=== PATIENT | male | born 1930 | race Caucasian/White ===

== ENCOUNTER 2016-11-07 14:19 | Emergency (ER) | payer MEDICARE ==
--- NOTE | 2016-11-07 15:08 | XR ---
EXAMINATION TYPE: XR chest 1V portable DATE OF EXAM: 11/07/2016 3:00 PM COMPARISON: Chest x-ray September 27, 2015 HISTORY: Checkup after tracheostomy reinsertion. TECHNIQUE: Single AP portable frontal view of the chest is obtained. FINDINGS: Tracheostomy ostomy tube position is stable. There is persistent bibasilar scarring and/or atelectasis. There is no no focal air space opacity, pleural effusion, or pneumothorax seen. The car diac silhouette size is upper limits of normal with atherosclerotic thoracic aorta. The osseous str uctures are intact. IMPRESSION: Persistent patchy bibasilar atelectasis and/or scarring. Tracheostomy tube position stakeke le.
--- NOTE | 2016-11-07 16:18 | ED ---
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 He presents with complaints of shortness of breath no chest pain fevers chills sweats or other symptoms. Patient was unable to get it back in. MD Complaint: shortness of breath - Related Data Home Medications Medication Instructions Recorded Confirmed Carvedilol [Coreg] 3.125 mg PO BID 06/20/16 11/07/16 Folic Acid 1 mg PO DAILY 06/20/16 11/07/16 Lactose-Reduced Food/Fiber [Jevity 237 ml PO Q4H 06/20/16 11/07/16 1.2 Jose L Liquid] Midodrine [ProAmatine] 5 mg PO TID 06/20/16 11/07/16 Nitroglycerin [Nitro-Dur 0.4MG/Hr 1 patch TRANSDERM Q24H PRN 06/20/16 11/07/16 Patch] Pravastatin Sodium [Pravachol] 80 mg PO DAILY 11/07/16 11/07/16 Previous Rx's Medication Instructions Recorded Aspirin 81 mg PO DAILY chew 09/29/15 Gabapentin [Neurontin] 300 mg PO BID cap 09/29/15 Tamsulosin [Flomax] 0.4 mg PO DAILY cap.er.24h 09/29/15 Allergies Allergy/AdvReac Type Severity Reaction Status Date / Time Penicillins AdvReac Unknown Verified 11/07/16 15:56 Review of Systems ROS Statement: Those systems with pertinent positive or pertinent negative responses have been documented in the HPI. ROS Other: All systems not noted in ROS Statement are negative. 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1950 History of Any Multi-Drug Resistant Organisms: None Reported Past Surgical History: Heart Catheterization With Stent, Tonsillectomy Additional Past Surgical History / Comment(s): esophageal dilation Past Anesthesia/Blood Transfusion Reactions: No Reported Reaction Date of Last Stent Placement:: 2009 Past Psychological History: No Psychological Hx Reported Smoking Status: Never smoker Past Alcohol Use History: None Reported Past Drug Use History: None Reported - Past Family History Mother Family Medical History: Dementia General Exam - General Exam Comments Initial Comments: This is a well-developed asthenic appearing male who appears be in some respiratory distress. Limitations: no limitations General appearance: alert, anxious, in distress Head exam: Present: atraumatic, normocephalic, normal inspection Eye exam: Present: normal appearance, PERRL, EOMI. Absent: scleral icterus, conjunctival injection, periorbital swelling ENT exam: Present: normal exam, mucous membranes moist Neck exam: Present: other (A well healed tracheostomy site is noted no active bleeding there is some stridorous findings on examination.) Respiratory exam: Present: normal lung sounds bilaterally. Absent: respiratory distress, wheezes, rales, rhonchi, stridor Cardiovascular Exam: Present: normal rhythm, tachycardia, normal heart sounds. Absent: systolic murmur, diastolic murmur, rubs, gallop, clicks GI/Abdominal exam: Present: soft, normal bowel sounds. Absent: distended, tenderness, guarding, rebound, rigid Extremities exam: Present: normal inspection, full ROM, normal capillary refill. Absent: tenderness, pedal edema, joint swelling, calf tenderness Back exam: Present: normal inspection Neurological exam: Present: alert, oriented X3, CN II-XII intact Psychiatric exam: Present: normal affect, normal mood Skin exam: Present: warm, dry, intact, normal color. Absent: rash Course Vital Signs 11/07/16 11/07/16 11/07/16 14:27 14:48 15:37 Temperature 96.7 F L Pulse Rate 107 H 90 86 Respiratory 30 H 24 24 Rate Blood Pressure 178/79 141/71 137/60 O2 Sat by Pulse 80 L 96 94 L Oximetry - Reevaluation(s) Reevaluation #1: 11/07/16 16:17 I did discuss the case with Dr. Alonzo the patient will be discharged home after period of observation with daily trach evaluation by home health care. Follow-up in the office. Procedures - Procedures Initial comment: Patient did require replacement of the tracheostomy and obturator was not available for the Christian silver metal tracheostomy.. The site was prepped sterilely attempt was made using a #8 Shiley which was the size of the Christian tracheostomy. We are unable pass it. A #6 was successfully passed with some difficulty. There was a small amount of localized bleeding. Patient did feel much improved after the placement of the tracheostomy. Medical Decision Making - Medical Decision Making The patient was observed for a period of time and home health care was also set up in the interim. Patient was reevaluated by respiratory. Patient will be discharged home is a follow-up with Dr. Alonzo and return when necessary he is much improved at this time. - Radiology Data Radiology results: report reviewed (I did review the x-ray and report no acute findings.), image reviewed Critical Care Time Critical Care Time: Yes Critical Care Time: 31 minutes of critical care time which includes initial presentation with history physical. Reevaluation patient several occasions after the tracheostomy was replaced. Discussion with Dr. Alonzo. Discussed with the family. Documentation of the above. Disposition Clinical Impression: Tracheostomy mechanical complication, Tracheostomy care Disposition: HOME SELF-CARE Condition: Good Instructions: Tracheostomy Care (ED) Referrals: Joya Perkins MD [Primary Care Provider] - 1-2 days [place] DO [Doctor of Osteopathic Medicine] - 1-2 days
[2016-11-07 16:45] VITALS: BP 143/68; PULSE 85; RESP 16; TEMP 98.5
== END 2016-11-07 16:43 | disposition home or self-care (01) ==
LOC: EC 14:19
DX: J95.03 Malfunction of tracheostomy stoma (principal); I25.10 Atherosclerotic heart disease of native coronary artery without angina pectoris; E78.5 Hyperlipidemia, unspecified; I10 Essential (primary) hypertension; Z79.899 Other long term (current) drug therapy; Z88.0 Allergy status to penicillin; Z95.5 Presence of coronary angioplasty implant and graft; Z90.89 Acquired absence of other organs; Y83.8 Other surgical procedures as the cause of abnormal reaction of the patient, or of later complication, without mention of misadventure at the time of the procedure
CPT/HCPCS: 31502; 71010; 99285

== ENCOUNTER 2016-12-19 02:49 | Emergency (ER) | payer MEDICARE ==
[2016-12-19 02:59] VITALS: RESP 18; TEMP 97.6
--- NOTE | 2016-12-19 03:07 | ED ---
Recheck HPI - General Source: patient, RN notes reviewed Mode of arrival: ambulatory Limitations: no limitations <Santa Justice - Last Filed: 12/19/16 03:05> <Sher Ugalde - Last Filed: 12/19/16 04:23> - General Chief Complaint: Recheck/Abnormal Lab/Rx Stated Complaint: stomach tube Time Seen by Provider: 12/19/16 03:01 - History of Present Illness Initial Comments: 86 yo male presents to the ER with cc of feeding tube came out. Patient states that he woke up with the feeding tube out. Patient denies any pain. Patient states she's had this happen before. Patient states he just needs a feeding tube replaced. Patient denies any other symptoms at this time. Patient denies any recent fever, chills, shortness of breath, chest pain, back pain, abdominal pain, nausea vomiting, numbness or tingling, dysuria or hematuria, constipation or diarrhea, headaches or visual changes, or any other current symptoms. (Santa Justice) - Related Data Home Medications Medication Instructions Recorded Confirmed Carvedilol [Coreg] 3.125 mg PO BID 06/20/16 11/07/16 Folic Acid 1 mg PO DAILY 06/20/16 11/07/16 Lactose-Reduced Food/Fiber [Jevity 237 ml PO Q4H 06/20/16 11/07/16 1.2 Jose L Liquid] Midodrine [ProAmatine] 5 mg PO TID 06/20/16 11/07/16 Nitroglycerin [Nitro-Dur 0.4MG/Hr 1 patch TRANSDERM Q24H PRN 06/20/16 11/07/16 Patch] Pravastatin Sodium [Pravachol] 80 mg PO DAILY 11/07/16 11/07/16 Previous Rx's Medication Instructions Recorded Aspirin 81 mg PO DAILY chew 09/29/15 Gabapentin [Neurontin] 300 mg PO BID cap 09/29/15 Tamsulosin [Flomax] 0.4 mg PO DAILY cap.er.24h 09/29/15 Allergies Allergy/AdvReac Type Severity Reaction Status Date / Time Penicillins AdvReac Unknown Verified 12/19/16 02:59 Review of Systems ROS Other: All systems not noted in ROS Statement are negative. <Santa Justice - Last Filed: 12/19/16 03:05> ROS Other: All systems not noted in ROS Statement are negative. <Sher Ugalde - Last Filed: 12/19/16 04:23> ROS Statement: Those systems with pertinent positive or pertinent negative responses have been documented in the HPI. 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1950 History of Any Multi-Drug Resistant Organisms: None Reported Past Surgical History: Heart Catheterization With Stent, Tonsillectomy Additional Past Surgical History / Comment(s): esophageal dilation, feeding tube , trach Past Anesthesia/Blood Transfusion Reactions: No Reported Reaction Date of Last Stent Placement:: 2009 Past Psychological History: No Psychological Hx Reported Smoking Status: Never smoker Past Alcohol Use History: None Reported Past Drug Use History: None Reported - Past Family History Mother Family Medical History: Dementia <Santa Justice - Last Filed: 12/19/16 03:05> General Exam Limitations: no limitations General appearance: alert, in no apparent distress Neck exam: Present: normal inspection. Absent: tenderness, meningismus, lymphadenopathy Respiratory exam: Present: normal lung sounds bilaterally. Absent: respiratory distress, wheezes, rales, rhonchi, stridor Cardiovascular Exam: Present: regular rate, normal rhythm, normal heart sounds. Absent: systolic murmur, diastolic murmur, rubs, gallop, clicks GI/Abdominal exam: Present: soft, normal bowel sounds. Absent: distended, tenderness, guarding, rebound, rigid Neurological exam: Present: alert, oriented X3 Psychiatric exam: Present: normal affect, normal mood Skin exam: Present: warm, dry, intact, normal color. Absent: rash <Santa Justice - Last Filed: 12/19/16 03:05> Medical Decision Making - Radiology Data Radiology results: report reviewed, image reviewed <Santa Justice - Last Filed: 12/19/16 03:05> <Sher Ugalde - Last Filed: 12/19/16 04:23> - Medical Decision Making 86-year-old male presents emergency Department with a chief complaint of feeding tube coming out. At this time we replace the patient's feeding tube. We discussed follow-up return parameters. We discussed all the patient's questions. They state Nelson they're urine plan. They will be discharged home. (Santa Justice) I saw this patient in conjunction with the physician surgical assistant certified. I performed independent history and physical exam. Agree with case management. I personally replaced the gastric tube without complication. (Sher Ugalde) Disposition <Santa Justice - Last Filed: 12/19/16 03:05> <Sher Ugalde - Last Filed: 12/19/16 04:23> Clinical Impression: Encounter for feeding tube placement Disposition: HOME SELF-CARE Condition: Stable Instructions: How to Use and Care for Your PEG Tube (ED) Additional Instructions: Please use medication as discussed. Please follow up with family doctor if symptoms have not improved over the next two days. Please return to the emergency room if your symptoms increase or worsen or for any other concerns. Referrals: Joya Perkins MD [Primary Care Provider] - 1-2 days
[2016-12-19 04:39] VITALS: BP 154/79; PULSE 76
--- NOTE | 2016-12-19 05:05 | XR ---
EXAM: XR Abdomen, 1 View CLINICAL HISTORY: Feeding tube placement TECHNIQUE: Frontal supine view of the abdomen/pelvis. COMPARISON: No relevant prior studies available. FINDINGS: Gastrointestinal tract: Nonspecific bowel gas pattern. No dilation. Bones/joints: Unremarkable. Tubes, lines and devices: Percutaneous catheter, likely within the stomach. Enteric contrast is noted within the gastric antrum/proximal duodenum. No evidence of leak. IMPRESSION: Percutaneous catheter, likely within the stomach. Enteric contrast is noted within the gastric antrum/proximal duodenum. No evidence of leak.
== END 2016-12-19 04:37 | disposition home or self-care (01) ==
LOC: EC 02:49
DX: K94.29 Other complications of gastrostomy (principal); I25.10 Atherosclerotic heart disease of native coronary artery without angina pectoris; E78.5 Hyperlipidemia, unspecified; I10 Essential (primary) hypertension; Z79.899 Other long term (current) drug therapy; Z88.0 Allergy status to penicillin; Z95.5 Presence of coronary angioplasty implant and graft; Z93.1 Gastrostomy status
CPT/HCPCS: 99282; 43760; 74000; Q9967

== ENCOUNTER 2017-02-22 07:41 | Emergency (ER) | payer MEDICARE ==
[2017-02-22 07:45] VITALS: BP 141/65; PULSE 66; RESP 20; TEMP 97.5
--- NOTE | 2017-02-22 08:00 | ED ---
General Adult HPI - General Chief complaint: Recheck/Abnormal Lab/Rx Stated complaint: g tube came out Time Seen by Provider: 02/22/17 07:55 Source: patient, family Mode of arrival: ambulatory Limitations: language barrier - History of Present Illness Initial comments: 86-year-old male with history of bilateral vocal cord paralysis, dysphagia status post tracheostomy and percutaneous gastric feeding tube presents for evaluation of PEG tube. The rubber cap is broken. The patient requests that the Be replaced, does not want the entire feeding tube replaced. Patient has no other problems with the feeding tube, no other complaints. Patient's son does report that they had a bad experience previously in the emergency department with significant pain when replacing the patient's PEG tube. - Related Data Home Medications Medication Instructions Recorded Confirmed Carvedilol [Coreg] 3.125 mg PO BID 06/20/16 11/07/16 Folic Acid 1 mg PO DAILY 06/20/16 11/07/16 Lactose-Reduced Food/Fiber [Jevity 237 ml PO Q4H 06/20/16 11/07/16 1.2 Jose L Liquid] Midodrine [ProAmatine] 5 mg PO TID 06/20/16 11/07/16 Nitroglycerin [Nitro-Dur 0.4MG/Hr 1 patch TRANSDERM Q24H PRN 06/20/16 11/07/16 Patch] Pravastatin Sodium [Pravachol] 80 mg PO DAILY 11/07/16 11/07/16 Previous Rx's Medication Instructions Recorded Aspirin 81 mg PO DAILY chew 09/29/15 Gabapentin [Neurontin] 300 mg PO BID cap 09/29/15 Tamsulosin [Flomax] 0.4 mg PO DAILY cap.er.24h 09/29/15 Allergies Allergy/AdvReac Type Severity Reaction Status Date / Time Penicillins AdvReac Unknown Verified 02/22/17 07:45 Review of Systems ROS Statement: Those systems with pertinent positive or pertinent negative responses have been documented in the HPI. ROS Other: All systems not noted in ROS Statement are negative. 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1950 History of Any Multi-Drug Resistant Organisms: None Reported Past Surgical History: Heart Catheterization With Stent, Tonsillectomy Additional Past Surgical History / Comment(s): esophageal dilation, feeding tube , trach Past Anesthesia/Blood Transfusion Reactions: No Reported Reaction Date of Last Stent Placement:: 2009 Past Psychological History: No Psychological Hx Reported Smoking Status: Never smoker Past Alcohol Use History: None Reported Past Drug Use History: None Reported - Past Family History Mother Family Medical History: Dementia General Exam Limitations: language barrier General appearance: alert, in no apparent distress Head exam: Present: atraumatic, normocephalic Eye exam: Present: normal appearance ENT exam: Present: other (Tracheostomy) Respiratory exam: Absent: respiratory distress Cardiovascular Exam: Present: regular rate, normal rhythm GI/Abdominal exam: Present: other (peg tube site clean dry and intact, peg tube cap is broken) Neurological exam: Present: alert Psychiatric exam: Present: normal affect, normal mood Skin exam: Absent: cyanosis, diaphoretic Course Vital Signs 02/22/17 07:43 Temperature 97.5 F L Pulse Rate 66 Respiratory 20 Rate Blood Pressure 141/65 O2 Sat by Pulse 96 Oximetry Medical Decision Making - Medical Decision Making 86-year-old male presenting for PEG tube evaluation. The At the end of the PEG tube has broken off. Patient and his son request replacement of only the cap. They do not want an new peg tube. The Is replaced, and tape to the existing PEG tube. They are also given additional cap. They will follow-up with [facility] which is where the PEG tube was placed. Disposition Clinical Impression: PEG tube malfunction Disposition: HOME SELF-CARE Condition: Good Instructions: How to Use and Care for Your PEG Tube (ED) Referrals: Joya Perkins MD [Primary Care Provider] - 1-2 days Time of Disposition: 07:59
== END 2017-02-22 08:09 | disposition home or self-care (01) ==
LOC: EC 07:41
DX: K94.23 Gastrostomy malfunction (principal); I10 Essential (primary) hypertension; I25.10 Atherosclerotic heart disease of native coronary artery without angina pectoris; E78.5 Hyperlipidemia, unspecified; Z88.0 Allergy status to penicillin; Z79.899 Other long term (current) drug therapy
CPT/HCPCS: 99282

== ENCOUNTER → 2017-03-25 | Outpatient (CLI) | payer MEDICARE ==
[2017-03-25 11:49] LABS: ALT 36 U/L (21-72); AST 32 U/L (17-59); Alkaline Phosphatase 93 U/L (38-126); Anion Gap 7 mmol/L; Blood Urea Nitrogen 32 mg/dL (9-20); Calcium 9.6 mg/dL (8.4-10.2); Carbon Dioxide 33 mmol/L (22-30); Chloride 103 mmol/L (98-107); Cholesterol 149 mg/dL (<200); Glucose 91 mg/dL (74-99); HDL Cholesterol 45 mg/dL (40-60); Non-African American GFR(MDRD) >60 (>60 ml/min/1.73 sqM); Potassium 4.5 mmol/L (3.5-5.1); Sodium 143 mmol/L (137-145); Total Bilirubin 0.5 mg/dL (0.2-1.3); Total Protein 6.9 g/dL (6.3-8.2)
== END ==
LOC: LABWHC1 10:44
PROVIDERS: ATTEND Internal Medicine Interventional Cardiology
DX: E78.2 Mixed hyperlipidemia (principal)
CPT/HCPCS: 36415; 80053; 80061

== ENCOUNTER → 2017-06-13 | Outpatient (CLI) | payer MEDICARE ==
[2017-06-13 17:50] LABS: ALT 39 U/L (21-72); AST 35 U/L (17-59); Alkaline Phosphatase 122 U/L (38-126); Anion Gap 7 mmol/L; Blood Urea Nitrogen 41 mg/dL (9-20); Calcium 9.7 mg/dL (8.4-10.2); Carbon Dioxide 32 mmol/L (22-30); Chloride 104 mmol/L (98-107); Cholesterol 167 mg/dL (<200); Glucose 90 mg/dL (74-99); HDL Cholesterol 43 mg/dL (40-60); Non-African American GFR(MDRD) >60 (>60 ml/min/1.73 sqM); Potassium 4.8 mmol/L (3.5-5.1); Sodium 143 mmol/L (137-145); Total Bilirubin 0.4 mg/dL (0.2-1.3); Total Protein 7.2 g/dL (6.3-8.2)
== END | disposition home or self-care (01) ==
LOC: LABWHC1 16:34
PROVIDERS: ATTEND Internal Medicine Interventional Cardiology
DX: E78.2 Mixed hyperlipidemia (principal); I10 Essential (primary) hypertension; G50.0 Trigeminal neuralgia
CPT/HCPCS: 36415; 80053; 80061; 80183

== ENCOUNTER 2017-09-07 16:21 | Emergency (ER) | payer MEDICARE ==
[2017-09-07 17:07] VITALS: BP 135/94; PULSE 79; RESP 16; TEMP 98.5
--- NOTE | 2017-09-07 17:33 | ED ---
Recheck HPI - General Chief Complaint: Recheck/Abnormal Lab/Rx Stated Complaint: G Tube Issues Time Seen by Provider: 09/07/17 17:22 Source: patient, RN notes reviewed, old records reviewed Mode of arrival: ambulatory Limitations: no limitations - History of Present Illness Initial Comments: This is a 27-year-old male presents emergency Department a chief complaint of needing a PEG tube Replacement. He reports that his tach At this time is too small and it is leaking from around it. He reports that he has a 16-[place] PEG tube. He does not want the entire PEG tube replaces in the past has had severe pain when that occurred. He had this placed at [facility]. He also is a patient with a tracheostomy. Patient reports that the PEG tube Is too small. - Related Data Home Medications Medication Instructions Recorded Confirmed Carvedilol [Coreg] 3.125 mg PO BID 06/20/16 11/07/16 Folic Acid 1 mg PO DAILY 06/20/16 11/07/16 Lactose-Reduced Food/Fiber [Jevity 237 ml PO Q4H 06/20/16 11/07/16 1.2 Jose L Liquid] Midodrine [ProAmatine] 5 mg PO TID 06/20/16 11/07/16 Nitroglycerin [Nitro-Dur 0.4MG/Hr 1 patch TRANSDERM Q24H PRN 06/20/16 11/07/16 Patch] Pravastatin Sodium [Pravachol] 80 mg PO DAILY 11/07/16 11/07/16 Previous Rx's Medication Instructions Recorded Aspirin 81 mg PO DAILY chew 09/29/15 Gabapentin [Neurontin] 300 mg PO BID cap 09/29/15 Tamsulosin [Flomax] 0.4 mg PO DAILY cap.er.24h 09/29/15 Allergies Allergy/AdvReac Type Severity Reaction Status Date / Time Penicillins AdvReac Unknown Verified 09/07/17 17:06 Review of Systems ROS Statement: Those systems with pertinent positive or pertinent negative responses have been documented in the HPI. ROS Other: All systems not noted in ROS Statement are negative. 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1950 History of Any Multi-Drug Resistant Organisms: None Reported Past Surgical History: Heart Catheterization With Stent, Tonsillectomy Additional Past Surgical History / Comment(s): esophageal dilation, feeding tube , trach Past Anesthesia/Blood Transfusion Reactions: No Reported Reaction Date of Last Stent Placement:: 2009 Past Psychological History: No Psychological Hx Reported Smoking Status: Never smoker Past Alcohol Use History: None Reported Past Drug Use History: None Reported - Past Family History Mother Family Medical History: Dementia General Exam - General Exam Comments Initial Comments: This is an 87-year-old male. No acute distress. Limitations: no limitations General appearance: alert, in no apparent distress Head exam: Present: atraumatic, normocephalic, normal inspection Eye exam: Present: normal appearance, PERRL, EOMI. Absent: scleral icterus, conjunctival injection, periorbital swelling ENT exam: Present: normal exam, mucous membranes moist Neck exam: Present: normal inspection. Absent: tenderness, meningismus, lymphadenopathy Respiratory exam: Present: normal lung sounds bilaterally. Absent: respiratory distress, wheezes, rales, rhonchi, stridor Cardiovascular Exam: Present: regular rate, normal rhythm, normal heart sounds. Absent: systolic murmur, diastolic murmur, rubs, gallop, clicks GI/Abdominal exam: Present: soft, normal bowel sounds, other (Patient has a PEG tube. The area of the PEG tube at the skin is clean and dry.). Absent: distended, tenderness, guarding, rebound, rigid Extremities exam: Present: normal inspection, full ROM, normal capillary refill. Absent: tenderness, pedal edema, joint swelling, calf tenderness Back exam: Present: normal inspection Neurological exam: Present: alert, oriented X3, CN II-XII intact Psychiatric exam: Present: normal affect, normal mood Course Vital Signs 09/07/17 17:04 Temperature 98.5 F Pulse Rate 79 Respiratory 16 Rate Blood Pressure 135/94 O2 Sat by Pulse 98 Oximetry Medical Decision Making - Medical Decision Making This patient is an 87-year-old male presents emergency department today wanting a new For his peg tube. Patient reports that he does not want the entire peg tube replaced. Only wants the cat. He states it leaks because the Is too small. If this time patient was given two peg tubes and used the caps off of them to replace his existing caps. Patient family was upset that they had to wait for the PEG tube to be delivered to me from [facility]. I discussed I could not have gotten the tubes any sooner, and attempted to have them discharged as soon as possible. I discussed they need to follow up with PCP and surgeon for further replacement of peg tube parts. Disposition Clinical Impression: PEG tube malfunction Disposition: HOME SELF-CARE Condition: Good Instructions: How to Use and Care for Your PEG Tube (ED) Additional Instructions: Follow-up with primary care physician, and surgeon who originally placed tubing for any further replacement parts. Return to emergency department if any alarming signs or symptoms occur. Referrals: Joya Perkins MD [Primary Care Provider] - 1-2 days Time of Disposition: 18:21
== END 2017-09-07 18:28 | disposition home or self-care (01) ==
LOC: EC 16:21
DX: K94.23 Gastrostomy malfunction (principal); I25.10 Atherosclerotic heart disease of native coronary artery without angina pectoris; E78.5 Hyperlipidemia, unspecified; I10 Essential (primary) hypertension; Z79.899 Other long term (current) drug therapy; Z88.0 Allergy status to penicillin
CPT/HCPCS: 99283

== ENCOUNTER → 2018-01-30 | Outpatient (CLI) | payer MEDICARE ==
--- NOTE | 2018-01-30 09:46 | US ---
EXAMINATION TYPE: US carotid duplex BILAT DATE OF EXAM: 01/30/2018 COMPARISON: CT neck March 31, 2016. CLINICAL HISTORY: R42 Dizziness. EXAM MEASUREMENTS: RIGHT: Peak Systolic Velocity (PSV) cm/sec ----- Right CCA: 75.8 ----- Right ICA: 72.1 ----- Right ECA: 61.6 ICA/CCA ratio: 1.0 RIGHT: End Diastole cm/sec ----- Right CCA: 15.4 ----- Right ICA: 33.7 ----- Right ECA: 0.0 LEFT: Peak Systolic Velocity (PSV) cm/sec ----- Left CCA: 72.9 ----- Left ICA: 75.6 ----- Left ECA: 57.2 ICA/CCA ratio: 1.0 LEFT: End Diastole cm/sec ----- Left CCA: 11.9 ----- Left ICA: 25.8 ----- Left ECA: 0.0 VERTEBRALS (direction of flow): Right Vertebral: Antegrade Left Vertebral: Antegrade Rhythm: Normal Exam slightly suboptimal due to overlying tracheostomy tube strap per technologist. Grayscale images show mild to minimal eccentric hyperechoic plaque at bilateral carotid bulbs findings correlate with CT from 2016. IMPRESSION: Mild to minimal atherosclerotic change bilateral carotid bulbs without hemodynamically s ignificant stenosis seen in either internal carotid artery.
== END | disposition home or self-care (01) ==
LOC: RADUSWWP 07:44
PROVIDERS: ATTEND Internal Medicine
DX: I65.23 Occlusion and stenosis of bilateral carotid arteries (principal)
CPT/HCPCS: 93880